=== PATIENT | female | born 1980 | race Caucasian/White ===

== ENCOUNTER 2017-07-23 15:52 | Emergency (ER) | payer SELFPAY ==
[~2017-07-23] VITALS: Ht 167.6 cm; Wt 59.0 kg
[2017-07-24] MEDS ORDERED: ONDANSETRON HCL 4MG/2ML VIAL IV STA (01:19)
[2017-07-24] MEDS ORDERED: KETOROLAC 30MG/ML VIAL IV STA (01:19)
[2017-07-24 01:38] LABS: BASOPHILS % 0.3 % (0.0-2.0); EOSINOPHILS % 1.3 % (0.0-5.0); HEMATOCRIT. 36.4 % (36.0-48.0); HEMOGLOBIN. 12.3 g/dL (12.0-16.0); LYMPHOCYTES % 11.5 % (20.0-50.0); MEAN CORPUSCULAR HEMOGLOBIN 28.5 pg (28.0-32.0); MEAN CORPUSCULAR VOLUME 84.5 fL (81.0-99.0); MEAN PLATELET VOLUME 6.5 fl (7.4-10.4); MONOCYTES % 7.2 % (2.0-8.0); NEUTROPHILS % 79.7 % (40.0-76.0); PLATELET 302 x1000/uL (130-400); RED BLOOD CELL COUNT 4.31 mill/uL (4.2-5.4); RED CELL DISTRIBUTION WIDTH 12.7 % (11.6-14.6)
[2017-07-24 01:40] LABS: CHLORIDE 106 mEq/L (98-107)
[2017-07-24 01:42] LABS: PROTHROMBIN TIME 10.7 sec (9.4-11.6)
[2017-07-24 01:45] LABS: CLARITY URINE CLOUDY (CLEAR); COLOR URINE ORANGE (YELLOW); KETONES URINE 3+ (NEGATIVE); LEUKOCYTE ESTERASE URINE 1+ (NEGATIVE); NITRITE URINE NEGATIVE (NEGATIVE); OCCULT BLOOD URINE 3+ (NEGATIVE); PH URINE 5.5 (4.5-8.0); PROTEIN URINE TRACE (NEGATIVE); SPECIFIC GRAVITY URINE 1.017 (1.005-1.030); UROBILINOGEN URINE 0.2 E.U./dL (0.2-1.0)
[2017-07-24 01:48] LABS: CARBON DIOXIDE 23 mEq/L (21-32)
[2017-07-24] MEDS ORDERED: DIATR MEGLU/DIATRIZOATE SOLN 30ML ONE (04:28)
[2017-07-24 06:59] VITALS: BP 104/57
== END 2017-07-24 10:52 | disposition home or self-care (01) ==
LOC: ER 15:52
DX: R19.00 Intra-abdominal and pelvic swelling, mass and lump, unspecified site (principal); N39.0 Urinary tract infection, site not specified; N70.11 Chronic salpingitis; R79.1 Abnormal coagulation profile; Z90.49 Acquired absence of other specified parts of digestive tract
CPT/HCPCS: 36415; 74176; 76856; 80053; 81001; 81025; 83690; 85025; 85610; 96374; 96375; 99285; J1885; J2405; Z7610; Q9963